=== PATIENT | female | born 1985 | race Caucasian/White ===

== ENCOUNTER 2017-05-01 18:53 | Emergency (ER) | payer MEDICAID ==
[~2017-05-01] VITALS: Ht 170.2 cm; Wt 126.9 kg
[2017-05-01 18:56] VITALS: BP 146/88
[2017-05-01] MEDS ORDERED: SILVER SULF. CRM 1% , 25GM ONE (19:06)
[2017-05-01] MEDS ORDERED: SILVER SULF. CRM 1%, 50GM TP ONE (19:30)
[2017-05-01] MEDS ORDERED: PLEASE ENTER ALLERGIES MC SCH ×2 (19:30)
== END 2017-05-01 19:29 | disposition home or self-care (01) ==
LOC: ED 19:18
DX: T23.252A Burn of second degree of left palm, initial encounter (principal); T31.0 Burns involving less than 10% of body surface
CPT/HCPCS: 99282